=== PATIENT | male | born 1995 | race Caucasian/White ===

== ENCOUNTER 2022-06-06 19:26 | Emergency (ER) | payer OTHER, SELFPAY ==
[2022-06-06 19:30] VITALS: PULSE 75
[2022-06-06 19:42] VITALS: BP 125/78; PULSE 85; RESP 16; TEMP 36.4; O2SAT 99; BMI 28.2
[2022-06-06 20:02] VITALS: BP 122/74; PULSE 78; RESP 16; TEMP 36.4; O2SAT 99
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
[2022-06-06 20:05] VITALS: BP 122/74; PULSE 78; RESP 16; TEMP 36.4
== END 2022-06-06 20:06 | disposition home or self-care (01) ==
LOC: ED 20:04
PROVIDERS: Emergency Provider Family Medicine
DX: S39.012A Strain of muscle, fascia and tendon of lower back, initial encounter (principal); V43.02XA Car driver injured in collision with other type car in nontraffic accident, initial encounter
CPT/HCPCS: 99282; 99283; 99284

== ENCOUNTER 2022-09-21 00:41 | Emergency (ER) | payer OTHER, SELFPAY ==
[2022-09-21 00:50] VITALS: BP 172/105; PULSE 107; RESP 16; TEMP 36.6; O2SAT 97; BMI 30.2
[2022-09-21 01:45] VITALS: BP 158/91; PULSE 91; RESP 16; O2SAT 97
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
== END 2022-09-21 02:02 | disposition home or self-care (01) ==
PROVIDERS: Emergency Provider Family Medicine
DX: S16.1XXA Strain of muscle, fascia and tendon at neck level, initial encounter (principal); S39.012A Strain of muscle, fascia and tendon of lower back, initial encounter; V44.5XXA Car driver injured in collision with heavy transport vehicle or bus in traffic accident, initial encounter
CPT/HCPCS: 99281; 99284